=== PATIENT | female | born 2000 | race Caucasian/White ===

== ENCOUNTER 2018-11-28 02:31 | Emergency (ER) | payer OTHER ==
[~2018-11-28] VITALS: Ht 170.2 cm; Wt 63.6 kg
[2018-11-28] MEDS ORDERED: VALT1TAB PO (07:48)
[2018-11-28] MEDS ORDERED: AZITHROMYCIN 250 MG TAB PO ONE (08:00)
[2018-11-28] MEDS ORDERED: cefTRIAXone SOD 250 MG VIAL (J0696) IM ONE (08:00)
[2018-11-28] MEDS ORDERED: LIDOCAINE 1% SDV 5 ML VIAL DILUENT ONE (08:00)
[2018-11-28] MEDS ORDERED: AMOXICILLIN 250 MG CAP PO SCH (08:00)
[2018-11-28 08:16] VITALS: BP 130/57
[2018-11-28 09:21] LABS: CHLAMYDIA DNA AMPLIFICATION POSITIVE (NEGATIVE); GC DNA AMPLIFICATION NEGATIVE (NEGATIVE)
[2018-11-30] MEDS ORDERED: ZITHTAB PO (14:26)
== END 2018-11-28 08:17 | disposition home or self-care (01) ==
LOC: M ED 02:31
DX: A60.03 Herpesviral cervicitis (principal)
CPT/HCPCS: 81001; 84702; 87086; 87255; 87661; 96372; 99284; J0696

== ENCOUNTER → 2019-08-17 | Outpatient (CLI) | payer OTHER ==
[~2019-08-17] MED LIST: VALT1TAB PO; ZITHTAB PO
--- NOTE | 2019-08-17 14:10 | REP ---
REASON FOR EXAM: Assess viability. An in-office exam showed no heart rate. Transvesical imaging was obtained. The uterus measures 15.2 x 4.5 x 10 cm. Within the uterus, there is an anechoic structure with increased echoes surrounding it consistent with a decidual reaction. Within the gestational sac, echogenic material is seen consistent with a pole. Doppler interrogation with M-mode and color Doppler shows no evidence of cardiac activity. The mean-crown rump length measurement of the pole is consistent with an [id number]-gestational age. Only the left ovary was visualized and measured 3.4 x 1.6 x 2.7 cm. No abnormality was noted. IMPRESSION: No evidence of cardiac activity consistent with demise as described above. Electronically Signed by Shree Barker DO 08/17/2019 03:05 P
== END ==
LOC: M RAD 12:30
PROVIDERS: ATTEND Registered Nurse Maternal Newborn
DX: O02.1 Missed abortion (principal)

== ENCOUNTER 2019-08-18 14:51 | Day surgery (SDC) | payer OTHER ==
[~2019-08-18] VITALS: Ht 170.2 cm; Wt 70.2 kg
[2019-08-18] MEDS ORDERED: ACETAMINOPHEN 650 MG SUPP PR ONE (15:45)
[2019-08-18] MEDS ORDERED: NS 1,000 ML IV SCH ×2 (15:45→16:45)
[2019-08-18 16:23] LABS: HEMATOCRIT 34.4 % (36.0-47.0); HEMOGLOBIN 11.9 g/dl (12.0-15.5); MEAN CORPUSCULAR HEMOGLOBIN 30.2 pg (27.0-33.0); MEAN CORPUSCULAR HGB CONC 34.6 g/dl (32.0-36.5); MEAN CORPUSCULAR VOLUME 87.3 fl (80.0-96.0); PLATELET COUNT, AUTOMATED 226 10^3/uL (150-450); RED BLOOD COUNT 3.94 10^6/uL (4.00-5.40); WHITE BLOOD COUNT 8.1 10^3/uL (4.0-10.0)
[2019-08-18 16:48] LABS: BLOOD UREA NITROGEN 10 MG/DL (7-18); CALCIUM LEVEL 9.3 MG/DL (8.5-10.1); CARBON DIOXIDE LEVEL 21 MEQ/L (21-32); CHLORIDE LEVEL 106 MEQ/L (98-107); GLUCOSE, FASTING 79 MG/DL (70-100); POTASSIUM SERUM 3.3 MEQ/L (3.5-5.1); SODIUM LEVEL 137 MEQ/L (136-145)
[2019-08-18] MEDS ORDERED: ACETAMINOPHEN 650 MG SUPP As Ordered ONE (16:49)
[2019-08-18] MEDS ORDERED: propofoL 200 MG/20 ML VIAL As Ordered ONE (17:11)
[2019-08-18] MEDS ORDERED: MIDAZOLAM INJ 2MG/2ML VIAL (J2250 PER 1MG) As Ordered ONE (17:11)
[2019-08-18] MEDS ORDERED: LIDOCAINE 2% 100MG/5ML SDV (FOR ANES.) As Ordered ONE (17:11)
[2019-08-18] MEDS ORDERED: ONDANSETRON 4MG/2ML VIAL As Ordered ONE (17:11)
[2019-08-18] MEDS ORDERED: fentaNYL 100 MCG/2 ML INJECTION (J3010) As Ordered ONE ×2 (17:11→17:48)
[2019-08-18] MEDS ORDERED: KETOROLAC 60 MG/2 ML VIAL As Ordered ONE (17:11)
[2019-08-18] MEDS ORDERED: METOCLOPRAMIDE INJ 10MG/2ML VIAL (J2765 PER 1) As Ordered ONE (17:11)
[2019-08-18] MEDS ORDERED: dexameTHASONE 4 MG/ML 1ML VIAL (J1100 PER 1MG) As Ordered ONE (17:11)
[2019-08-18] MEDS ORDERED: OXYTOCIN INJ 10 UNITS/ML VIAL (J2590) As Ordered ONE (17:20)
[2019-08-18] MEDS ORDERED: oxyCODONE 5MG TAB As Ordered ONE (17:48)
[2019-08-18] MEDS ORDERED: fentaNYL 100 MCG/2 ML INJECTION (J3010) IV PRN (18:00)
[2019-08-18] MEDS ORDERED: oxyCODONE 5MG TAB PO PRN (18:00)
[2019-08-18] MEDS ORDERED: LR 1,000 ML IV SCH (18:00)
[2019-08-18] MEDS ORDERED: ONDANSETRON 4MG/2ML VIAL IV PRN (18:00)
[2019-08-18 18:50] VITALS: BP 128/63
== END 2019-08-18 19:10 | disposition home or self-care (01) ==
LOC: M SDC 14:51
PROVIDERS: ATTEND Obstetrics & Gynecology
DX: O02.1 Missed abortion (principal)
CPT/HCPCS: 36415; 59820; 80048; 84702; 85027; 86850; 86900; 86901; 88305; J1100; J1885; J2250; J2405; J2590; J2765; J3010

== ENCOUNTER 2020-10-22 13:20 | Emergency (ER) | payer OTHER ==
[~2020-10-22] VITALS: Ht 170.2 cm; Wt 94.1 kg
[2020-10-22 16:17] LABS: BASO % 0.2 % (0.0-1.0); EOS # 0.1 10^3/uL (0.0-0.5); EOS % 0.3 % (0.0-3.0); HEMATOCRIT 33.1 % (36.0-47.0); LYMPH # 2.3 10^3/uL (1.5-5.0); LYMPH % 13.2 % (24.0-44.0); MEAN CORPUSCULAR HGB CONC 33.2 g/dl (32.0-36.5); MEAN CORPUSCULAR VOLUME 93.2 fl (80.0-96.0); MONO % 5.6 % (2.0-8.0); NEUTROPHILS # 13.5 10^3/uL (1.5-8.5); NEUTROPHILS % 78.3 % (36.0-66.0); PLATELET COUNT, AUTOMATED 250 10^3/uL (150-450); RED BLOOD COUNT 3.55 10^6/uL (4.00-5.40); WHITE BLOOD COUNT 17.3 10^3/uL (4.0-10.0)
[2020-10-22 16:49] LABS: BLOOD UREA NITROGEN 8 MG/DL (7-18); CALCIUM LEVEL 8.7 MG/DL (8.5-10.1); CARBON DIOXIDE LEVEL 24 MEQ/L (21-32); CHLORIDE LEVEL 106 MEQ/L (98-107); CK-MB VALUE MASS < 1.0 NG/ML (<3.6); CPK CREATINE PHOSPHOKINASE 42 U/L (26-192); GLOMERULAR FILTRATION RATE > 60.0 (>60); GLUCOSE, FASTING 84 MG/DL (70-100); MB/CK RELATIVE INDEX 2.38 (< OR =4); POTASSIUM SERUM 3.9 MEQ/L (3.5-5.1); SODIUM LEVEL 137 MEQ/L (136-145); TROPONIN I < 0.02 NG/ML (< 0.10)
--- NOTE | 2020-10-22 17:23 | ECGEPIP ---
[facility] - ED Test Date: 2020-10-22 Pat Name: LAZARA CERVANETS Department: Room: - Gender: Female Director Writing: : 2000 Requested By: FENG Coleman Order Number: [id number] Reading MD: Enrique Walker Measurements Intervals [place] Rate: 92 P: 4 [place]: 116 QRS: 57 QRSD: 78 T: 4 QT: 372 QTc: 460 Interpretive Statements Normal sinus rhythm POOR R WAVE PROGRESSION NONSPECIFIC T WAVE ABNORMALITY(S) NO PRIORS FOR COMPARISON Electronically Signed on 10-22-2020 17:23:47 EDT by Enrique Walker
[2020-10-22 19:24] LABS: GC DNA AMPLIFICATION NEGATIVE (NEGATIVE)
--- NOTE | 2020-10-22 21:06 | REPVR ---
PROCEDURE INFORMATION: Exam: US Biophysical Profile Without Non-Stress Test Exam date and time: 10/22/2020 8:04 PM Age: 19 years old Clinical indication: Pain indication: Chest pain, elevated wbc; ; Additional info: Elevated wbc/ ordered by Dr. Clemente TECHNIQUE: Imaging protocol: US biophysical profile without non-stress testing. COMPARISON: No relevant prior studies available. FINDINGS: heart rate: 127 bpm. Presentation: Cephalic presentation. Placenta: Posterior placenta. No placenta previa. Amniotic fluid index: 17.1 cm. BIOPHYSICAL PROFILE: Breathin/2 Gross body movements: 2/2 tone: 2/2 Qualitative amniotic fluid: 2/2 Biophysical Profile Score: 8/8 DOPPLER: Umbilical artery Doppler: Three-vessel umbilical cord. Umbilical cord peak systolic and end-diastolic velocities are 37.0 cm/s and 15.1 cm/s respectively. Umbilical cord SD ratio is 2.45 with resistive index of 0.59. MATERNAL ANATOMY: Cervix: Cervix is thick and closed measuring 4.6 cm. No cervical funneling. IMPRESSION: Normal biophysical profile. Electronically signed by: Joe Patel On 10/22/2020 21:05:48 PM
--- NOTE | 2020-10-22 22:27 | REPVR ---
PROCEDURE INFORMATION: Exam: XR Chest Exam date and time: 10/22/2020 10:20 PM Age: 19 years old Clinical indication: Pain; Angina pectoris; Additional info: Cp TECHNIQUE: Imaging protocol: XR of the chest. Views: 1 view. COMPARISON: No relevant prior studies available. FINDINGS: Lungs: Clear. No consolidation. Pleural spaces: No pleural effusion. No pneumothorax. Heart/Mediastinum: Unremarkable. No cardiomegaly. Bones/joints: Unremarkable. IMPRESSION: No acute findings. Electronically signed by: Joe Patel On 10/22/2020 22:26:50 PM
[2020-10-22 22:56] VITALS: BP 136/66
== END 2020-10-22 23:00 | disposition home or self-care (01) ==
LOC: M ED 13:20
DX: O26.893 Other specified pregnancy related conditions, third trimester (principal); M94.0 Chondrocostal junction syndrome [Tietze]; Z88.8 Allergy status to other drugs, medicaments and biological substances; Z3A.00 Weeks of gestation of pregnancy not specified

== ENCOUNTER 2020-12-24 07:15 | Inpatient (IN) | payer OTHER ==
[2020-12-24] VITALS (44 sets, daily range): BP systolic 91–148; BP diastolic 42–79
[~2020-12-24] VITALS: Ht 170.2 cm; Wt 103.0 kg
[2020-12-24] MEDS ORDERED: MULTTAB20 PO (07:47)
[2020-12-24] MEDS ORDERED: FERR325T82 PO (07:47)
[2020-12-24] MEDS ORDERED: VITA250T4 PO (07:47)
[2020-12-24] MEDS ORDERED: VALT500T PO (07:47)
[2020-12-24] MEDS ORDERED: LACTATED RINGER'S 1000 ML IV STA (08:02)
[2020-12-24] MEDS ORDERED: METHYLERGONOVINE MALEATE 0.2 MG/ML VIAL (J2210) IM PRN (08:05)
[2020-12-24] MEDS ORDERED: LIDOCAINE 1% MDV 20ML VIAL INFIL PRN (08:05)
[2020-12-24] MEDS ORDERED: CARBOPROST TROMETHAMINE 250 MCG/ML AMP IM PRN (08:05)
[2020-12-24] MEDS ORDERED: OXYTOCIN DRIP 30 UNITS in IV 1 EA IV SCH (08:05)
[2020-12-24] MEDS ORDERED: TRANEXAMIC ACID INJection 1,000 MG in NS 100 ML IV PRN (08:05)
[2020-12-24] MEDS ORDERED: OXYTOCIN DRIP 30 UNITS in IV 1 EA IV PRN (08:05)
[2020-12-24 08:39] LABS: HEMATOCRIT 32.6 % (36.0-47.0); HEMOGLOBIN 11.1 g/dl (12.0-15.5); MEAN CORPUSCULAR HEMOGLOBIN 31.5 pg (27.0-33.0); MEAN CORPUSCULAR VOLUME 92.6 fl (80.0-96.0); PLATELET COUNT, AUTOMATED 191 10^3/uL (150-450); RED BLOOD COUNT 3.52 10^6/uL (4.00-5.40); WHITE BLOOD COUNT 12.6 10^3/uL (4.0-10.0)
[2020-12-24] MEDS: LR 1,000 ML IV SCH ×3 (08:54→20:45)
--- NOTE | 2020-12-24 09:19 | HPEPDOC ---
Obstetrical History & Physical General Date of Admission Dec 24, 2020 at 07:15 History of Present Illness 20 yo at 40w0d with MAXWELL of 24 DEC 2020 is admitted for eIOL for size greater than dates at her last visit, where she was measuring 3 cm ahead. She has not had any recent growth US to date. She denies headache, chest pain, RUQ pain, visual changes, leaking of fluid, vaginal bleeding, and reports positive movement. She has been having irregular contractions. She has supportive family at the bedside. 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 History: Spontaneous , Herpes simplex virus(HSV) Past Medical History Medical History Genital HSV Asthma Depression Anxiety Anemia Psoriasis Excessive weight gain during Surgical History: Dilatation and Curettage, [employer] teeth Family History Significant Family History: Hypertension Social History Marital Status: Family situation: Spouse/partner home Psychosocial History: Anxiety, Depression * Smoker: non-smoker Alcohol: Denies Drugs: denies Abuse Violence Screening Have you been hit/kicked/slapp: No Have you been sexually assault: No Allergies Coded Allergies: cefdinir (Verified Allergy, Severe, throat and face swelling, 10/22/20) Medications Scheduled Ascorbic Acid (Vitamin C) 250 Mg Tablet, 1 TAB PO DAILY Ferrous Sulfate (Iron) 325 Mg Tablet, 1 TAB PO BID No122/Iron/Folic Acid ( Multi Tablet) 1 Each Tablet, 1 TAB PO DAILY Valacyclovir HCl (Valtrex) 500 Mg Tablet, 500 MG PO BID Physical Examination Physical Examination GENERAL: Alert and oriented times three. BREAST: . ABDOMEN: Gravid and non-tender to touch. FETUS: Is vertex (VTX) by sterile vaginal examination (SVE), fetus is vertex (VTX) by Jeevan. HEART RATE: Regular rate and rhythm. LUNGS: Clear to auscultation (CTA). EXTREMITIES: No edema. No clonus. Deep tendon reflexes (DTRs) + 2. Sterile Speculum Exam: No lesions noted in the vaginal vault or over the cervix. Genital Exam: No lesions noted over the external genitalia or perineum. Laboratory Data 24H LABS Laboratory Tests 2 12/24/20 07:26: Serology Scanned Report Hepatitis B Testing 12/24/20 08:14: Nucleated Red Blood Cells % (auto) 0.0 CBC/BMP Laboratory Tests 12/24/20 08:14 Pertinent Laboratoy Data Blood Type: A+ RBC Antibody Screen: Negative HIV: Negative Hepatitis B: Negative Rapid Plasma Reagin: Nonreactive Rubella: Immune Varicella: Immune Chlamydia/Gonorrhea: Negative Group B Streptococcus: Negative Quad Screen Test: Negative Cystic Fibrosis: Negative Vaginal Examination Dilation: 3 cm Effacement: 70% Station: -3 Cervical Consistency: Soft Cervical Position: Middle Presentation: Cephalic presentation Position: Vertex (occiput) Assessment Heart Rate (FHR): 135 Variability: Moderate Accelerations: Present Decelerations: None Tocometer Contractions: Yes Frequency: regular (every 7-8 minutes) Multi-drug resistant Organism: No history of MDRO Assessment/Plan Assessment IUP at 40w0d Elective IOL for size greater than dates Genital HSV, no lesions Asthma Depression Anxiety Anemia Psoriasis Excessive weight gain during Plan Admit and orient. 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 Diet: clear liquids. Group B Streptococcus (GBS) negative. Labs and intravenous (IV) per unit protocol. Will start pitocin for IOL Counseled on Pitocin and induction of labor (IOL). Lactated Ringers (LR): Bolus 1000 mL, then at 125 mL/hr. Anticipate normal spontaneous delivery (). C-S as appropriate. Labor and Delivery Counseling We will deliver your baby through the vagina with possible assistance of forceps or vacuum device if needed for maternal or indications. Forceps and vacuum are devices that can assist with vaginal delivery when normal pushing efforts cannot achieve delivery on their own or when delivery is needed in an emergency for baby's well-being. Medications may be required to induce or augment (help) your labor in order to achieve a vaginal delivery. An episiotomy may be required to help your baby to delivery vaginally. You may also require repair of any lacerations or tears of your vagina or vulva that are caused by delivery. In some cases, emergencies can occur that require an emergency section d elivery so quickly that there may not be enough time to stop and complete consent forms for section. Understand that if this occurs, your providers will discuss the need for a section with you before they proceed with surgery. section is the delivery of your baby through an incision in your abdomen. In some situations, section may be safer to mom and baby than continuing labor and is only performed when clinically indicated. Risks of vaginal delivery include but are not limited to: Bleeding, infection, injury to the vagina, pelvic structures, injury to baby, damage to the uterus, reactions to anesthesia, uterine rupture, risk of hysterectomy for life thr eatening bleeding, or . Medications used to induce or augment labor may increase your risk for infection, uterine tachysystole, uterine rupture, heart rate abnormalities, need for emergency delivery or possible hysterectomy, and hemorrhage. Additional risks for use of forceps and vacuum include: increased risk of perineal and vaginal lacerations, risk of urinary or bowel incontinence, increased risk of injury to baby with bruising, scratches, hematomas on the head, or intracranial bleeding. BRIDGET CHRISTIAN [facility] Dec 24, 2020 08:56
[2020-12-24] MEDS ORDERED: FAMOTIDINE INJ 20MG/2ML VIAL (S0028 PER 1) IVP PRN (09:20)
[2020-12-24] MEDS ORDERED: ONDANSETRON 4MG/2ML VIAL IV PRN ×2 (09:20→18:00)
[2020-12-24] MEDS ORDERED: PROMETHAZINE INJ 25 MG/ML VIAL (J2550) IV PRN (09:20)
[2020-12-24] MEDS ORDERED: BUTORPHANOL 2 MG/ML INJ (J0595) IV PRN (09:20)
[2020-12-24] MEDS ORDERED: ACETAMINOPHEN 500 MG TAB PO PRN (09:20)
[2020-12-24 10:53] LABS: CREATININE,RANDOM URINE 57.4 MG/DL; TOTAL PROTEIN,RANDOM URINE 17.8 MG/DL (0.0-12.0)
[2020-12-24 12:59] LABS: ALT/SGPT 22 U/L (12-78); BILIRUBIN,TOTAL 0.2 MG/DL (0.2-1.0); CREATININE FOR GFR 0.63 MG/DL (0.55-1.30); GLOMERULAR FILTRATION RATE > 60.0 (>60); LDH LACTATE DEHYDROGENASE 147 U/L (84-246); URIC ACID 4.1 MG/DL (2.6-6.0)
--- NOTE | 2020-12-24 14:08 | IPNPDOC ---
Obstetrical Progress Note Date of Service Dec 24, 2020 Subjective 20 yo at 40w0d with MAXWELL of 24 DEC 2020 is admitted and has now ruled in for pre-eclampsia based on mildly elevated BPs and PC ratio of 0.31. She has no complaints at this time. She has supportive family at the bedside. Objective Vital Signs Date Time Temp Pulse Resp B/P (MAP) Pulse Ox O2 Delivery O2 Flow Rate FiO2 12/24/20 12:21 78 18 142/70 (94) Room Air 12/24/20 08:54 97.4 Pitocin at 10 mu/min Assessment Heart Rate (FHR): 135 Variability: Moderate Accelerations: Present Decelerations: None Tocometer Contractions: Yes Frequency: irregular (every 7-8 min) Sterile Vaginal Examination Dilation: 3 cm Effacement (%): 80% Station: -3 Cervical Consistency: Soft Cervical Position: Posterior Postion/Presentation: Cephalic presentation Assessment and Plan Age: 20 : 2 Term: 0 Pre-term: 0 Abortions: 1 Livin Weeks & Days 40w0d Status: Reassuring Group B Streptococcus: Negative Anticipate: Vaginal Delivery Additional Comments Discussed new diagnosis of pre-eclampsia and that plan is to continue to monitor BP and for symptoms. We discussed that if BP is elevated in severe range, then will need to control with IV antihypertensives We discussed that if BP remains uncontrolled or if she becomes symptomatic, then will start IV magnesium sulfate. All questions were answered to her satisfaction and she is without any further questions at this time. BRIDGET CHRISTIAN CNM Dec 24, 2020 14:08
[2020-12-24] MEDS ORDERED: LR 500 ML IV ONE (17:00)
[2020-12-24] MEDS ORDERED: REFRIGERATOR IV KEYS XX PRN (18:00)
[2020-12-24] MEDS ORDERED: FENTANYL/ROPIVACAINE/NACL BAG 100 ML EPIDURAL SCH (18:00)
[2020-12-24] MEDS ORDERED: EPIDURAL/PCA KEYS XX PRN (18:00)
[2020-12-24] MEDS ORDERED: diphenhydrAMINE 50MG/ML VIAL (J1200) IV PRN (18:00)
[2020-12-24] MEDS ORDERED: EPIDURAL COMMENT XX SCH (18:00)
[2020-12-24] MEDS ORDERED: NALOXONE INJ 0.4MG/1ML VIAL (J2310 PER 1MG) IV PRN (18:00)
--- NOTE | 2020-12-24 19:46 | IPNPDOC ---
Obstetrical Progress Note Date of Service Dec 24, 2020 Subjective Accepting care of this 20 yo at 40w0d with MAXWELL of 24 DEC 2020 wo is being induced at full term and developed Pree w/o Sf on admition. she is feeling comofortable with epidural in place. FHT: 130, Mod flako, +accels, -decel---cat I tracing [place]: 3-4/10, pit at 8 SVE: 5/80/-1, Bulging bag rupted, SROM AT 5 pm with clear fluids, EFW 4000g a/p Latent labor. cat I tracing. suspected macrosomia. SROM AT 5 PM. continue pit titration per l&d Protocol. Anticipate . Objective Vital Signs Date Time Temp Pulse Resp B/P (MAP) Pulse Ox O2 Delivery O2 Flow Rate FiO2 12/24/20 19:07 85 18 108/55 (72) Room Air 12/24/20 18:31 100 12/24/20 17:51 98.2 SHOBHA NAVARRO MD Dec 24, 2020 19:46
[2020-12-24] MEDS ORDERED: ePHEDrine SULFATE 25 MG/5 ML(5MG/ML) SYRINGE IV PRN (21:10)
[2020-12-25] VITALS (13 sets, daily range): BP systolic 118–140; BP diastolic 56–69
[2020-12-25] MEDS ORDERED: DIBUCAINE 1% OINTMENT 30GM TOP PRN (03:20)
[2020-12-25] MEDS ORDERED: DOCUSATE SODIUM 100MG CAPSULE PO PRN (03:20)
[2020-12-25] MEDS ORDERED: METHYLERGONOVINE MALEATE 0.2 MG TAB PO PRN (03:20)
[2020-12-25] MEDS ORDERED: MEASLES,MUMPS,RUBELLA VACCINE INJ (MMR-II) (90707) SC SCH (03:20)
--- NOTE | 2020-12-25 03:54 | DNPDOC ---
[facility] Delivery Note Delivery Note DATE OF DELIVERY: 12/25/2020 PREDELIVERY DIAGNOSIS: 40-0/7 weeks' gestation and labor. POST DELIVERY DIAGNOSIS: SHOULDER DYSTOCIA. PROCEDURE: VAGINAL DELIVERY MANAGER FILM: MELANIE Hines MD ANESTHESIA: Epidual ESTIMATED BLOOD LOSS: 100 mL. FINDINGS: 9 pound 14 ounce 4480g devorah , Score 6/7, no nuchal cord DELIVERY SUMMARY: Patient is a 20-year-old 1 now para 1001 who was admitted to labor and delivery for Induction at full term. Patient progressed to C/C/+2 and with good maternal effort delivered a viable 4480g male infant with APGARS of _6/7_. The infants head delivered OA. After delivery of the head, which presented in the MICKEY position, with appropriate downward traction in the standard fashion, the anterior left shoulder did not deliver spontaneously. Shoulder dystocia was diadnosed At this time and additional staff, was requested. Gregg position employed, along with suprapubic pressure. delievery was tempted at this time and anterior shoulder did not deliver. the posterior arm was tried to delivery and again was unable to deliver the anterior shoulder. a tthis time, voluntary fracture of the right clavicle was done and posterior arm was reattempted to delivery with hooking my finger around the baby right armpit and pulling the baby down. the posterior right arm was delivered. at this time and the anterior left shoulder was delivered followed by the rest of the . The normal 3-vessel cord was clamped x 2 and cut by the FOB. At that time, the infant was handed to pediatrics for their assessment. The infant was noted to have decreased movement in the right arm. no appreciable bruising noted. The time from delivery of the head to delivery of the shoulders was approximately 3 minutes. Cord blood obtained. Placenta delivered spontaneously and inspection of the placenta demonstrated that it was intact. The cord insertion appeared normal. The uterus was cleared of all clots and debris. Fundal massage until firm. Pitocin 30 units IV administered as per protocol and the patient required no additional uterotonics. Inspection of cervix, perineum, and vaginal wall revealed no tears. Repeat uterine examination noted uterine tone to be adequate and firm. Vaginal sweep performed. Lap, sponge, and needle count correct x 2. was taken to the NICU and Mom stayed in L&D in hemodynamic stable condition upon physician departure. CORD GASES WERE OBTAINED A PH: 7.264 NELLY: -5.5, VPH: 7.387, VBE: -3.7 SHOBHA NAVARRO MD Dec 25, 2020 3:54 am
[2020-12-25 04:03] LABS: CORD GAS ABE V -3.7; CORD GAS HCO3 V 20.5 MEQ/L; CORD GAS PCO2 V 34.9 mmHg; CORD GAS PH V 7.387 UNITS; CORD GAS PO2 V 44.1 mmHg; CORD GAS SBC V 21.2 MEQ/L; CORD GAS TCO2 V 21.6 MEQ/L
[2020-12-25 04:08] LABS: CORD GAS ABE A -5.5; CORD GAS HCO3 A 21.8 MEQ/L; CORD GAS O2 SAT A 76.8 %; CORD GAS PCO2 A 49.2 mmHg; CORD GAS PH A 7.264 UNITS; CORD GAS PO2 A 37.1 mmHg; CORD GAS SBC A 19.5 MEQ/L; CORD GAS TCO2 A 23.3 MEQ/L
[2020-12-25] MEDS: IBUPROFEN 800 MG TAB PO PRN ×2 (05:11→20:21)
[2020-12-25] MEDS: PRENATAL VITAMINS CHEWABLE TABLET PO SCH (09:00)
--- NOTE | 2020-12-26 01:33 | IPNPDOC ---
Progress Note Date of Service: Dec 26, 2020 Day#: 1 Progress Note Ms. Longo is a 20yo G1 now P1 who delivered infant male vaginally on Dec 12 at 40+1wks gestation after a 3 min shoulder dystocia. S: States she is doing well. Reports pain well controlled. She is ambulating well, tolerating a regular diet, urinating without difficulty, reports normal bowel activities and has no breast or leg pain. States is going well. Ambulating to the NICU to feed infant and he has had a good latch. Lochia is diminishing. Ambulating well, denies dizziness, lightheadedness. O: VS: stable and normal General: Alert. Well-appearing, in no acute distress. PSYCH: Well groomed. Appropriate affect, normal mood. Conversed easily. Neuro: Oriented to time, place, and person. RESP: Lungs clear to auscultation bilaterally without wheezes, rales or rhonchi. Unlabored breathing. CV: Normal RRR, no murmur, c/w normal . No edema to bilateral upper and lower extremities. Negative calf tenderness. ABD: Soft, non-tender. BS normal x4 quad. Fundus: Firm U-1, Fundus non-tender. Lochia: small, rubra, without odor. Perineum: intact MSK: legs without calf tenderness or edema bilaterally SKIN: Dry, intact. A/P 20yo G 1 P 1 day 1 s/p at 40+1 wks gestation A positive/GBS negative/RI/ Normal progression well, however first time mother with infant in NICU. 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 Continue care and comfort measures, tylenol/motrin for pain Encouraged and ambulation Plan discharge home after 48hrs Discharge medications previously picked up from pharmacy. VS, I&O, 24H, [place] Vital Signs/I&O Vital Signs Date Time Temp Pulse Resp B/P (MAP) Pulse Ox O2 Delivery O2 Flow Rate FiO2 12/25/20 18:00 98.0 99 18 123/62 (82) 99 Room Air Laboratory Data 24H LABS Laboratory Tests 2 12/25/20 03:25: Cord Arterial Blood pH 7.264, Cord Arterial Blood PCO2 49.2, Cord Arterial Blood PO2 37.1, Cord Arterial Blood HCO3 21.8, Cord Arterial Blood Total CO2 23.3, Cord Arterial Blood Base Excess -5.5, Cord Arterial Base Excess (Standard 19.5, Cord Arterial Bld Oxygen Saturation 76.8, Cord Venous Blood pH 7.387, Cord Venous Blood PCO2 34.9, Cord Venous Blood PO2 44.1, Cord Venous Blood HCO3 20.5, Cord Venous Blood Total CO2 21.6, Cord Venous Base Excess (Actual) -3.7, Cord Venous Base Excess (Standard) 21.2, Cord Venous Blood Oxygen Saturation 88.0 JEIMY AGUILAR CNM Dec 26, 2020 01:33
[2020-12-26 06:00] VITALS: BP 100/53
[2020-12-26] MEDS: PRENATAL VITAMINS CHEWABLE TABLET PO SCH (08:52)
[2020-12-26 18:00] VITALS: BP 140/89
[2020-12-27] MEDS: IBUPROFEN 800 MG TAB PO PRN (00:48)
[2020-12-27 05:26] VITALS: BP 116/56
[2020-12-27] MEDS ORDERED: DOCU100C16 PO (05:43)
[2020-12-27] MEDS ORDERED: DIBU28OI2 TOP (05:43)
[2020-12-27] MEDS: PRENATAL VITAMINS CHEWABLE TABLET PO SCH (09:40)
--- NOTE | 2020-12-27 09:59 | DSES ---
DISCHARGE SUMMARY DATE OF ADMISSION: 12/24/2020 DATE OF DISCHARGE: 12/27/2020 BRIEF HISTORY: 20-year-old 1, now para 1 was admitted at term for induction of labor because of macrosomia. She had an epidural placed, had vaginal delivery of male infant, 9 pounds, 14 ounces, 4480 gm, Apgars 6 and 7 at 1 and 5 minutes respectively. Had a significant shoulder dystocia with ___ fracture of right clavicle. Arterial pH 7.26, base excess -5.5, venous pH 7.38, base excess -3.7. On her second day we discussed phlebitis, cystitis, mastitis, endometritis and cellulitis, diet, exercise, pain management, perineal, breast and wound care. Her admitting hemoglobin was 11.1, hematocrit 32.6 and platelets 191. Vital signs on discharge: Blood pressure 116/56, respirations 16, pulse 83, temperature 97.5. Presently the baby is in the NICU, is being weaned off oxygen. Has an x-ray showing clear break of the clavicle on the right side. The rest of examination is unremarkable. Normocephalic, atraumatic. Neck full range of motion. Pupils equal, round and reactive to light. Distal pulses are symmetric. No DVT, PE or superficial phlebitis. Chest is clear bilaterally to bases, no wheezes or rhonchi. No CVA tenderness. Abdomen is soft, four quadrant bowel sounds are noted. Uterus 2 below, lochia moderate. Perineum intact. No rashes or lesions, no pruritus. No arthralgia or myalgia. No complaint of joint pain. No complaint of cough, wheeze, shortness of breath, or dyspnea on exertion. No nausea, vomiting, diarrhea, or constipation. No urgency or frequency. In summary, we have a term gestation who delivered a macrosomic infant with shoulder dystocia. Plans are to make her a boarder today. She is breast feeding on hourly basis in order to maintain the baby's blood sugars. Medications are at [place]. She has been ordered to have pelvic rest, six week checkup at [facility]. All questions were answered, 20 minute discussion. The patient was discharged improved. Edited: erika 12/29/2020 [id number] cc: [facility] MTDD
== END 2020-12-27 13:35 | disposition home or self-care (01) | DRG 806 ==
LOC: M LDI 07:15 → M OBS 12-25 05:19
PROVIDERS: ADMIT Registered Nurse Maternal Newborn; ATTEND Obstetrics & Gynecology
PROC: 3E033VJ Introduction of Other Hormone into Peripheral Vein, Percutaneous Approach (ICD-10-PCS; 2020-12-24)
PROC: 10E0XZZ Delivery of Products of Conception, External Approach (ICD-10-PCS; principal; 2020-12-25)
DX: O36.63X0 Maternal care for excessive fetal growth, third trimester, not applicable or unspecified (principal); Z37.0 Single live birth; O98.32 Other infections with a predominantly sexual mode of transmission complicating childbirth; Z3A.40 40 weeks gestation of pregnancy; A60.09 Herpesviral infection of other urogenital tract; O99.02 Anemia complicating childbirth; D64.9 Anemia, unspecified; O14.04 Mild to moderate pre-eclampsia, complicating childbirth; O66.0 Obstructed labor due to shoulder dystocia; O66.2 Obstructed labor due to unusually large fetus; O99.344 Other mental disorders complicating childbirth; F41.9 Anxiety disorder, unspecified; F32.9 Major depressive disorder, single episode, unspecified; O99.52 Diseases of the respiratory system complicating childbirth; J45.909 Unspecified asthma, uncomplicated

== ENCOUNTER 2022-05-05 10:45 | Inpatient (IN) | payer OTHER ==
[2022-05-05] VITALS (21 sets, daily range): BP systolic 98–141; BP diastolic 51–79
[~2022-05-05] VITALS: Ht 170.2 cm; Wt 84.2 kg
[~2022-05-05 10:45] MED LIST changes: +DIBU28OI2 TOP; +DOCU100C16 PO; +FERR325T82 PO; +MULTTAB20 PO; +VALT500T PO; +VITA250T4 PO
[2022-05-05 12:17] LABS: HEMATOCRIT 33.9 % (36.0-47.0); HEMOGLOBIN 11.2 g/dl (12.0-15.5); MEAN CORPUSCULAR HEMOGLOBIN 30.4 pg (27.0-33.0); MEAN CORPUSCULAR VOLUME 92.1 fl (80.0-96.0); PLATELET COUNT, AUTOMATED 196 10^3/uL (150-450); RED BLOOD COUNT 3.68 10^6/uL (4.00-5.40); WHITE BLOOD COUNT 10.7 10^3/uL (4.0-10.0)
[2022-05-05] MEDS ORDERED: LACTATED RINGER'S 1000 ML IV STA (12:54)
[2022-05-05] MEDS ORDERED: OXYTOCIN DRIP 30 UNITS in IV 1 EA IV SCH (12:55)
[2022-05-05] MEDS ORDERED: LIDOCAINE 1% MDV 20ML VIAL INFIL PRN (12:55)
[2022-05-05] MEDS ORDERED: TRANEXAMIC ACID INJection 1,000 MG in NS 100 ML IV PRN (12:55)
[2022-05-05] MEDS ORDERED: OXYTOCIN DRIP 30 UNITS in IV 1 EA IV PRN ×4 (12:55)
[2022-05-05] MEDS ORDERED: METHYLERGONOVINE MALEATE 0.2 MG/ML VIAL (J2210) IM PRN (12:55)
[2022-05-05] MEDS ORDERED: CARBOPROST TROMETHAMINE 250 MCG/ML AMP IM PRN (12:55)
[2022-05-05] MEDS: LR 1,000 ML IV SCH (13:21)
[2022-05-05] MEDS ORDERED: VANCOMYCIN HCL 1,000 MG, VIAL MATE ADAPTER 1 EACH in NS 250 ML IV SCH (14:15)
[2022-05-05] MEDS ORDERED: VANCOMYCIN HCL 1,000 MG, VIAL MATE ADAPTER 1 EACH in NS 250 ML IV ONE ×2 (16:00→17:00)
[2022-05-05] MEDS ORDERED: * PENDING VANCOMYCIN ENTRY XX SCH (21:00)
[2022-05-05] MEDS ORDERED: miSOPROStol 25MCG 1/4 TABLET PO SCH (21:00)
[2022-05-06] VITALS (32 sets, daily range): BP systolic 87–145; BP diastolic 49–79
[2022-05-06] MEDS ORDERED: FENTANYL 2MCG/ML ROPIVACAINE 0.2% IN 0.9% NACL 100ML IVBAG As Ordered ONE (03:03)
[2022-05-06] MEDS ORDERED: NALOXONE INJ 0.4MG/1ML VIAL IV PRN (03:10)
[2022-05-06] MEDS ORDERED: EPIDURAL/PCA KEYS XX PRN (03:10)
[2022-05-06] MEDS ORDERED: LR 500 ML IV PRN (03:10)
[2022-05-06] MEDS ORDERED: ONDANSETRON 4MG 2ML VIAL IV PRN (03:10)
[2022-05-06] MEDS ORDERED: diphenhydrAMINE 50MG/ML VIAL IV PRN (03:10)
[2022-05-06] MEDS: FENTANYL/ROPIVACAINE/NACL BAG 100 ML EPIDURAL SCH ×2 (03:49→10:21)
[2022-05-06] MEDS: LR 1,000 ML IV SCH (03:50)
[2022-05-06] MEDS ORDERED: VANCOMYCIN HCL 1,000 MG, VIAL MATE ADAPTER 1 EACH in NS 250 ML IV ONE (04:00)
[2022-05-06] MEDS: ePHEDrine SULFATE 25 MG/5 ML(5MG/ML) SYRINGE IVP PRN ×2 (05:11→05:15)
[2022-05-06] MEDS ORDERED: VALT1TAB PO (09:13)
[2022-05-06] MEDS ORDERED: ACETAMINOPHEN 500 MG TAB PO PRN (11:00)
[2022-05-06] MEDS ORDERED: IBUPROFEN 800 MG TAB PO PRN (11:00)
[2022-05-06] MEDS ORDERED: DOCUSATE SODIUM 100MG CAPSULE PO PRN (11:00)
[2022-05-06] MEDS ORDERED: OXYTOCIN DRIP 30 UNITS in IV 1 EA IV SCH (11:00)
[2022-05-06] MEDS ORDERED: ACETAMINOPHEN TAB 650MG DOSE (2X325MG) PO PRN (11:00)
[2022-05-06] MEDS ORDERED: METHYLERGONOVINE MALEATE 0.2 MG TAB PO PRN (11:00)
[2022-05-06] MEDS ORDERED: DIBUCAINE 1% OINTMENT 30GM TOP PRN (11:00)
[2022-05-06] MEDS: IBUPROFEN 600MG TAB PO PRN (23:17)
[2022-05-07 06:00] VITALS: BP 104/59
[2022-05-07] MEDS: IBUPROFEN 600MG TAB PO PRN (08:28)
[2022-05-07] MEDS ORDERED: PRENATAL VITAMINS CHEWABLE TABLET PO SCH (09:00)
== END 2022-05-07 18:20 | disposition home or self-care (01) | DRG 807 ==
LOC: M LDI 10:45 → M OBS 05-06 13:40
PROVIDERS: ADMIT Advanced Practice Midwife; ATTEND Advanced Practice Midwife
PROC: 3E0P7GC Introduction of Other Therapeutic Substance into Female Reproductive, Via Natural or Artificial Opening (ICD-10-PCS; 2022-05-05)
PROC: 10907ZC Drainage of Amniotic Fluid, Therapeutic from Products of Conception, Via Natural or Artificial Opening (ICD-10-PCS; 2022-05-05)
PROC: 10E0XZZ Delivery of Products of Conception, External Approach (ICD-10-PCS; principal; 2022-05-06)
DX: O98.32 Other infections with a predominantly sexual mode of transmission complicating childbirth (principal); Z37.0 Single live birth; O09.293 Supervision of pregnancy with other poor reproductive or obstetric history, third trimester; Z3A.39 39 weeks gestation of pregnancy; O99.824 Streptococcus B carrier state complicating childbirth; A60.09 Herpesviral infection of other urogenital tract; O77.0 Labor and delivery complicated by meconium in amniotic fluid